=== PATIENT | male | born 1980 | race Caucasian/White ===

== ENCOUNTER → 2022-06-16 | Outpatient (CLI) | payer MEDICAID ==
[~2022-06-16] MED LIST: BENZ1TAB83 PO; BISM262O25 PO; CLON1TAB12 PO; CLOT15CR4 TP; CYAN100022 SL; DIPH-1242 PO; FLUD.1 PO; GUAIF10 PO; IBUP-2784 PO; LEVE500L PO; MAG-115 PO; MOM30 PO; MOME17N NASAL; NA P133E22 RC; NUTR113P PO; PHEN177S29 MM; PRED10TA23 PO; WHEA98PO PO; [UNRECOGNIZED DRUG - CODE] PO
== END | disposition home or self-care (01) ==
LOC: WHH 13:11
PROVIDERS: ATTEND Specialist
DX: T81.89XA Other complications of procedures, not elsewhere classified, initial encounter (principal); S31.101A Unspecified open wound of abdominal wall, left upper quadrant without penetration into peritoneal cavity, initial encounter; I49.5 Sick sinus syndrome; G24.9 Dystonia, unspecified; F84.0 Autistic disorder; F73 Profound intellectual disabilities; F41.9 Anxiety disorder, unspecified; F31.9 Bipolar disorder, unspecified; F50.89 Other specified eating disorder; Z68.28 Body mass index [BMI] 28.0-28.9, adult; Z79.899 Other long term (current) drug therapy; Z95.0 Presence of cardiac pacemaker; Y83.8 Other surgical procedures as the cause of abnormal reaction of the patient, or of later complication, without mention of misadventure at the time of the procedure; X58.XXXA Exposure to other specified factors, initial encounter; Y93.89 Activity, other specified; Y92.238 Other place in hospital as the place of occurrence of the external cause; Y99.8 Other external cause status
CPT/HCPCS: 99215

== ENCOUNTER → 2022-06-30 | Outpatient (CLI) | payer MEDICAID | END | disposition home or self-care (01) | LOC: WHH 13:00 | PROVIDERS: ATTEND Specialist | DX: T81.89XD Other complications of procedures, not elsewhere classified, subsequent encounter (principal); S31.101D Unspecified open wound of abdominal wall, left upper quadrant without penetration into peritoneal cavity, subsequent encounter; I49.5 Sick sinus syndrome; G24.9 Dystonia, unspecified; F84.0 Autistic disorder; F73 Profound intellectual disabilities; F41.9 Anxiety disorder, unspecified; F31.9 Bipolar disorder, unspecified; F50.89 Other specified eating disorder; Z68.28 Body mass index [BMI] 28.0-28.9, adult; Z79.899 Other long term (current) drug therapy; Z95.0 Presence of cardiac pacemaker; Y83.8 Other surgical procedures as the cause of abnormal reaction of the patient, or of later complication, without mention of misadventure at the time of the procedure; X58.XXXD Exposure to other specified factors, subsequent encounter | CPT/HCPCS: 99214; A6197 ×3 ==

== ENCOUNTER → 2022-07-14 | Outpatient (CLI) | payer MEDICAID | END | disposition home or self-care (01) | LOC: WHH 13:02 | PROVIDERS: ATTEND Specialist | DX: T81.89XD Other complications of procedures, not elsewhere classified, subsequent encounter (principal); S31.101D Unspecified open wound of abdominal wall, left upper quadrant without penetration into peritoneal cavity, subsequent encounter; I49.5 Sick sinus syndrome; G24.9 Dystonia, unspecified; F84.0 Autistic disorder; F73 Profound intellectual disabilities; F41.9 Anxiety disorder, unspecified; F31.9 Bipolar disorder, unspecified; F50.89 Other specified eating disorder; Z68.28 Body mass index [BMI] 28.0-28.9, adult; Z79.899 Other long term (current) drug therapy; Z95.0 Presence of cardiac pacemaker; X58.XXXD Exposure to other specified factors, subsequent encounter; Y83.8 Other surgical procedures as the cause of abnormal reaction of the patient, or of later complication, without mention of misadventure at the time of the procedure | CPT/HCPCS: 99214; A6196 ==

== ENCOUNTER → 2022-07-28 | Outpatient (CLI) | payer MEDICAID | END | disposition home or self-care (01) | LOC: WHH 13:13 | PROVIDERS: ATTEND Specialist | DX: T81.89XD Other complications of procedures, not elsewhere classified, subsequent encounter (principal); S31.101D Unspecified open wound of abdominal wall, left upper quadrant without penetration into peritoneal cavity, subsequent encounter; I49.5 Sick sinus syndrome; G24.9 Dystonia, unspecified; F84.0 Autistic disorder; F73 Profound intellectual disabilities; F41.9 Anxiety disorder, unspecified; F31.9 Bipolar disorder, unspecified; F50.89 Other specified eating disorder; Z68.28 Body mass index [BMI] 28.0-28.9, adult; Z79.899 Other long term (current) drug therapy; Z95.0 Presence of cardiac pacemaker; X58.XXXD Exposure to other specified factors, subsequent encounter; Y83.8 Other surgical procedures as the cause of abnormal reaction of the patient, or of later complication, without mention of misadventure at the time of the procedure | CPT/HCPCS: 99214; A6197 ==

== ENCOUNTER → 2022-08-25 | Outpatient (CLI) | payer MEDICAID | END | disposition home or self-care (01) | LOC: WHH 13:27 | PROVIDERS: ATTEND Specialist | DX: T81.89XD Other complications of procedures, not elsewhere classified, subsequent encounter (principal); S31.101D Unspecified open wound of abdominal wall, left upper quadrant without penetration into peritoneal cavity, subsequent encounter; I49.5 Sick sinus syndrome; G24.9 Dystonia, unspecified; F84.0 Autistic disorder; F73 Profound intellectual disabilities; F41.9 Anxiety disorder, unspecified; F31.9 Bipolar disorder, unspecified; F50.89 Other specified eating disorder; Z68.28 Body mass index [BMI] 28.0-28.9, adult; Z79.899 Other long term (current) drug therapy; Z95.0 Presence of cardiac pacemaker; X58.XXXD Exposure to other specified factors, subsequent encounter; Y83.8 Other surgical procedures as the cause of abnormal reaction of the patient, or of later complication, without mention of misadventure at the time of the procedure | CPT/HCPCS: 99214; A6197 ×3 ==

== ENCOUNTER → 2022-09-08 | Outpatient (CLI) | payer MEDICAID | END | disposition home or self-care (01) | LOC: WHH 13:04 | PROVIDERS: ATTEND Specialist | DX: T81.89XD Other complications of procedures, not elsewhere classified, subsequent encounter (principal); S31.101D Unspecified open wound of abdominal wall, left upper quadrant without penetration into peritoneal cavity, subsequent encounter; I49.5 Sick sinus syndrome; G24.9 Dystonia, unspecified; F84.0 Autistic disorder; F73 Profound intellectual disabilities; F31.9 Bipolar disorder, unspecified; F41.9 Anxiety disorder, unspecified; F50.89 Other specified eating disorder; Z68.28 Body mass index [BMI] 28.0-28.9, adult; Z79.899 Other long term (current) drug therapy; Z95.0 Presence of cardiac pacemaker; X58.XXXD Exposure to other specified factors, subsequent encounter; Y83.8 Other surgical procedures as the cause of abnormal reaction of the patient, or of later complication, without mention of misadventure at the time of the procedure | CPT/HCPCS: 99214; A6196 ==

== ENCOUNTER → 2022-09-22 | Outpatient (CLI) | payer MEDICAID | END | disposition home or self-care (01) | LOC: WHH 12:59 | PROVIDERS: ATTEND Specialist | DX: T81.89XD Other complications of procedures, not elsewhere classified, subsequent encounter (principal); S31.101D Unspecified open wound of abdominal wall, left upper quadrant without penetration into peritoneal cavity, subsequent encounter; I49.5 Sick sinus syndrome; G24.9 Dystonia, unspecified; F84.0 Autistic disorder; F73 Profound intellectual disabilities; F31.9 Bipolar disorder, unspecified; F41.9 Anxiety disorder, unspecified; F50.89 Other specified eating disorder; Z68.28 Body mass index [BMI] 28.0-28.9, adult; Z79.899 Other long term (current) drug therapy; Z95.0 Presence of cardiac pacemaker; X58.XXXD Exposure to other specified factors, subsequent encounter; Y83.8 Other surgical procedures as the cause of abnormal reaction of the patient, or of later complication, without mention of misadventure at the time of the procedure | CPT/HCPCS: 99214; A6196; A6197 ×2; A4450 ==

== ENCOUNTER → 2022-10-20 | Outpatient (CLI) | payer MEDICAID | END | disposition home or self-care (01) | LOC: WHH 13:04 | PROVIDERS: ATTEND Specialist | DX: T81.89XD Other complications of procedures, not elsewhere classified, subsequent encounter (principal); S31.104D Unspecified open wound of abdominal wall, left lower quadrant without penetration into peritoneal cavity, subsequent encounter; F31.9 Bipolar disorder, unspecified; F41.9 Anxiety disorder, unspecified; Z95.0 Presence of cardiac pacemaker; Z79.899 Other long term (current) drug therapy; X58.XXXD Exposure to other specified factors, subsequent encounter; Y83.8 Other surgical procedures as the cause of abnormal reaction of the patient, or of later complication, without mention of misadventure at the time of the procedure | CPT/HCPCS: 99214; A6197; A4450 ==

== ENCOUNTER → 2022-11-03 | Outpatient (CLI) | payer MEDICAID | END | disposition home or self-care (01) | LOC: WHH 13:00 | PROVIDERS: ATTEND Specialist | DX: T81.89XD Other complications of procedures, not elsewhere classified, subsequent encounter (principal); S31.104D Unspecified open wound of abdominal wall, left lower quadrant without penetration into peritoneal cavity, subsequent encounter; F31.9 Bipolar disorder, unspecified; F41.9 Anxiety disorder, unspecified; Z95.0 Presence of cardiac pacemaker; Z79.899 Other long term (current) drug therapy; X58.XXXD Exposure to other specified factors, subsequent encounter; Y83.8 Other surgical procedures as the cause of abnormal reaction of the patient, or of later complication, without mention of misadventure at the time of the procedure | CPT/HCPCS: 99214 ==

== ENCOUNTER → 2022-11-29 | Outpatient (CLI) | payer MEDICAID ==
[~2022-11-29] MED LIST changes: +IOHEXOL 350 MG/ML 100ML INFUS..BTL IV ONE
== END | disposition home or self-care (01) ==
LOC: RAH 08:30
PROVIDERS: ATTEND Internal Medicine Gastroenterology
DX: K59.00 Constipation, unspecified (principal); K63.2 Fistula of intestine
CPT/HCPCS: 74177; Q9967